=== PATIENT | male | born 1965 | race Caucasian/White ===

== ENCOUNTER 2025-02-01 13:56 | Day surgery (SDC) | payer BC ==
[2025-02-01] MEDS: IV FLUID CONTINUATION 1,000 ML IV ONE (14:39)
[2025-02-01 14:45] VITALS: RESP 16; TEMP 97.9
[2025-02-01] MEDS ORDERED: PROPOFOL 10 MG/ML 20 ML VIAL IV ONE (16:00)
[2025-02-01] MEDS ORDERED: GLYCOPYRROLATE 0.2 MG/ML 2 ML VIAL ONE (16:00)
[2025-02-01] MEDS ORDERED: LIDOCAINE 1% INJ 10MG/ML (20 ML MDV) ONE (16:00)
--- NOTE | 2025-02-01 16:20 | P.PCN ---
Date of Procedure: 02/01/25 Procedure(s) Performed: BRIEF HISTORY: Patient is a 60-year-old pleasant white male scheduled for an elective colonoscopy as a part of screening for colon cancer/positive Cologuard. PROCEDURE PERFORMED: Colonoscopy with snare polypectomy. PREOPERATIVE DIAGNOSIS: Screening for colon cancer/positive Cologuard. IV sedation per Anesthesia. PROCEDURE: After informed consent was obtained, the patient, was brought into the endoscopy unit. IV sedation was administered by Anesthesia under continuous monitoring. Digital rectal examination was normal. Initially the Olympus CF-160 flexible video colonoscope was then inserted in the rectum, gradually advanced into the cecum without any difficulty. Careful examination was performed as the scope was gradually being withdrawn. Ileocecal valve and the appendiceal orifice were visualized and appeared normal. Prep was excellent. Mucosa of the cecum, ascending colon appeared normal. Him transverse colon there was a 8 mm polyp that was removed by cold snare polypectomy. Rest of the, transverse colon, descending colon, sigmoid colon, and rectum appeared normal. In the mid rectum there was a 5 mm polyp removed by cold snare polypectomy. Scattered diffuse diverticulosis noted. Retroflexion was performed in the rectum and no lesions were seen. The patient tolerated the procedure well. IMPRESSION: 8 mm transverse colon polyp status post cold snare polypectomy 5 mm rectal polyp status post snare polypectomy Scattered right-sided and left-sided diverticulosis RECOMMENDATIONS: Findings of this examination were discussed with the patient as well as his family.. He was advised to follow-up with the biopsy results. If the biopsy reveals adenoma he can have repeat colonoscopy in 5 years.
[2025-02-01 16:44] VITALS: BP 149/85; PULSE 80
== END 2025-02-01 16:56 | disposition home or self-care (01) ==
LOC: ORWHC2ENDO 13:56
PROVIDERS: ATTEND Internal Medicine Gastroenterology
DX: Z12.11 Encounter for screening for malignant neoplasm of colon (principal); D12.3 Benign neoplasm of transverse colon; K62.1 Rectal polyp; K57.30 Diverticulosis of large intestine without perforation or abscess without bleeding; E78.5 Hyperlipidemia, unspecified; K21.9 Gastro-esophageal reflux disease without esophagitis; F17.210 Nicotine dependence, cigarettes, uncomplicated
CPT/HCPCS: 88305; 45385; J2003; J2704; J1596